=== PATIENT | male | born 1965 | race Caucasian/White ===

== ENCOUNTER 2021-05-01 22:38 | Observation (INO) | payer SELFPAY ==
[2021-05-01] MEDS ORDERED: Haldol 5 MG IM ONE (23:05)
[2021-05-01] MEDS ORDERED: BENADRYL 50 MG/ML IM ONE (23:06)
[2021-05-01] MEDS ORDERED: Ativan 2 MG/1 ML VIAL IM ONE (23:06)
[2021-05-01] MEDS ORDERED: Ativan 2 MG/1 ML VIAL ONE (23:08)
[2021-05-01] MEDS ORDERED: BENADRYL 50 MG/ML ONE (23:08)
[2021-05-01] MEDS ORDERED: Haldol 5 MG ONE (23:08)
--- NOTE | 2021-05-01 23:11 | ERPHSYRPT ---
- History of Present Illness Time Seen by Provider: 05/01/21 22:48 Source: patient, police Exam Limitations: intoxication Physician History: 55 years old male is brought in the ER by PD after he was found wandering in his underwear in the street, cursing at people. Patient is agitated, thrashing around and does not want to be in here. Does admit using multiple drugs but cannot tell exactly when did he use them last time. Moving all 4 extremities. History is limited secondary to his intoxicated condition. Severity of Symptoms-Max: moderate Severity of Symptoms-Current: moderate Associated Symptoms: agitated Allergies/Adverse Reactions: UNOBTAINABLE Allergy (Unverified 05/01/21 22:46) Home Medications: Unobtainable 05/01/21 [History] - Review of Systems All Other Systems: Unable due to condition - Nursing Vital Signs Nursing Vital Signs: Initial Vital Signs Temperature 97.5 F 05/01/21 22:47 Pulse Rate 74 05/01/21 22:47 Respiratory Rate 18 05/01/21 22:47 Blood Pressure 119/88 05/01/21 22:47 O2 Sat by Pulse Oximetry 99 05/01/21 22:47 Pain Scale Pain Intensity 0 - Physical Exam General Appearance: no apparent distress, alert Eyes, Ears, Nose, Throat Exam: normal ENT inspection, TMs normal, pharynx normal Neck Exam: normal inspection, non-tender, supple, full range of motion Respiratory Exam: normal breath sounds, lungs clear Cardiovascular Exam: regular rate/rhythm, normal heart sounds Gastrointestinal/Abdominal Exam: soft, normal bowel sounds, No tenderness Extremities Exam: normal inspection, normal range of motion, No evidence of injury Neurological Exam: alert, 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, oriented x 3, agitated Appearance: impaired insight Behavior/Eye Contact/Speech: good eye contact, refused to answer, increased rate of speech, agitated Skin Exam: normal color SpO2 Interpretation: normal SpO2: 95 O2 Delivery: Room Air - Course EKG Interpreted by Me: RATE ([id number]), Sinus Rhythm, Left Shipman Deviation, NORMAL INTERVALS, Non-specific ST Changes Ordered Tests: Active Orders 24 hr Category Date Time Status Bedrest with BRP/BSC ROUTINE Activity 05/02/21 01:58 Active Up With Assistance ROUTINE Activity 05/02/21 01:58 Active Code Status Order ROUTINE Care 05/02/21 01:58 Active Fall Protocol ROUTINE Care 05/02/21 01:58 Active IV Care Q6H Care 05/02/21 01:58 Active IV Insertion STAT Care 05/01/21 22:59 Completed Neuro Checks Q1H Care 05/02/21 01:58 Active POCT Glucose Check ACHS Care 05/02/21 01:[address] in Observation ROUTINE Care 05/02/21 01:58 Active Navjot LaynejohnAida ROUTINE Care 05/02/21 01:58 Active ACETAMINOPHEN Stat Lab 05/01/21 22:55 Completed CBC W DIFF AM.LAB Lab 05/02/21 04:00 Ordered CBC W DIFF Stat Lab 05/01/21 22:55 Completed CMP AM.LAB Lab 05/02/21 04:00 Ordered CMP Stat Lab 05/01/21 22:55 Completed ETHYL ALCOHOL Stat Lab 05/01/21 22:55 Completed SALICYLATE Stat Lab 05/01/21 22:55 Completed UA W/RFX UR CULTURE Stat Lab 05/01/21 22:59 Completed Urine Triage Profile Stat Lab 05/01/21 22:59 Completed Oxygen Nasal Cannula 2 lpm RT 05/02/21 01:58 Active Transfer Order Routine Transfer 05/02/21 Completed Medication Summary Generic Name Dose Route Start Last Admin Trade Name Freq PRN Reason Stop Dose Admin Potassium Chloride/Sodium Chloride 1,000 mls @ 125 mls/hr 05/02/21 01:58 05/02/21 02:04 Sodium Chloride 0.9% W/ 20 Meq Kcl/Liter IV 06/01/21 01:57 125 mls/hr .Q8H VALARIE Administration Lorazepam 1 mg 05/02/21 01:58 Ativan 2 Mg/1 Ml Vial IV 06/01/21 01:57 Q4H PRN PRN ANXIETY Pantoprazole Sodium 40 mg 05/02/21 10:00 Protonix 40 Mg Iv IV 06/01/21 09:59 [id number] VALARIE Discontinued Medications Generic Name Dose Route Start Last Admin Trade Name Freq PRN Reason Stop Dose Admin Diphenhydramine HCl 50 mg 05/01/21 23:06 05/01/21 23:11 Benadryl 50 Mg/Ml IM 05/01/21 23:07 50 mg STAT ONE Administration Diphenhydramine HCl Confirm 05/01/21 23:08 Benadryl 50 Mg/Ml Administered 05/01/21 23:09 Dose 50 mg .ROUTE .STK-MED ONE Haloperidol Lactate 5 mg 05/01/21 23:05 05/01/21 23:12 Haldol 5 Mg IM 05/01/21 23:06 5 mg STAT ONE Administration Haloperidol Lactate Confirm 05/01/21 23:08 Haldol 5 Mg Administered 05/01/21 23:09 Dose 5 mg .ROUTE .STK-MED ONE Sodium Chloride Confirm 05/01/21 23:24 Sodium Chloride 0.9% 1000 Ml Administered 05/01/21 23:25 Dose 1,000 mls @ ud .ROUTE .STK-MED ONE Sodium Chloride 1,000 mls @ 999 mls/hr 05/01/21 23:45 05/02/21 01:14 Sodium Chloride 0.9% 1000 Ml IV 05/02/21 00:45 Infused .Q1H1M STA Infusion Lorazepam 2 mg 05/01/21 23:06 05/01/21 23:12 Ativan 2 Mg/1 Ml Vial IM 05/01/21 23:07 2 mg STAT ONE Administration Lorazepam Confirm 05/01/21 23:08 Ativan 2 Mg/1 Ml Vial Administered 05/01/21 23:09 Dose 2 mg .ROUTE .STK-MED ONE Lab/Rad Data: Laboratory Result Diagrams 05/01/21 22:55 05/01/21 22:55 Laboratory Results 05/02/21 05/01/21 05/01/21 Range/Units 00:39 22:59 22:59 WBC (4.0-10.5) K/mm3 RBC (4.1-5.6) M/mm3 Hgb (12.5-18.0) gm/dl Hct (42-50) % MCV (78-100) fl MCH (26-32) pg MCHC (32-36) g/dl RDW (11.5-14.0) % Plt Count (150-450) K/mm3 MPV (7.5-11.0) fl Gran % (36.0-66.0) % Eos # (Auto) (0-0.5) Absolute Lymphs (auto) (1.0-4.6) Absolute Monos (auto) (0.0-1.3) Lymphocytes % (24.0-44.0) % Monocytes % (0.0-12.0) % Eosinophils % (0.00-5.0) % Basophils % (0.0-0.4) % Absolute Granulocytes (1.4-6.9) Basophils # (0-0.4) Sodium (137-145) mmol/L Potassium (3.5-5.1) mmol/L Chloride (98-107) mmol/L Carbon Dioxide (22-30) mmol/L Anion Gap (5-15) MEQ/L BUN (9-20) mg/dL Creatinine (0.66-1.25) mg/dL Estimated GFR ML/MIN Glucose (74-106) mg/dL Calcium (8.4-10.2) mg/dL Total Bilirubin (0.2-1.3) mg/dL AST (17-59) U/L ALT (0-50) U/L Alkaline Phosphatase (38-126) U/L Serum Total Protein (6.3-8.2) g/dL Albumin (3.5-5.0) g/dL Urine Color YELLOW (YELLOW) Urine Appearance SLIGHTLY CLOUDY (CLEAR) Urine pH 5.0 (5-6) Ur Specific [place] 1.026 (1.005-1.025) Urine Protein 100 (Negative) Urine Ketones SMALL (NEGATIVE) Urine Blood NEGATIVE (0-5) Jose Carlos/ul Urine Nitrite NEGATIVE (NEGATIVE) Urine Bilirubin NEGATIVE (NEGATIVE) Urine Urobilinogen 2 (0-1) mg/dL Ur Leukocyte Esterase NEGATIVE (NEGATIVE) Urine WBC (Auto) NONE (0-5) /HPF Urine RBC (Auto) NONE (0-2) /HPF U Epithel Cells (Auto) NONE (FEW) /HPF Urine Bacteria (Auto) NONE (NEGATIVE) /HPF Urine Mucus (Auto) MODERATE (NEGATIVE) /HPF Urine Culture Reflexed NO (NO) Urine Glucose NEGATIVE (NEGATIVE) mg/dL Salicylates (2-20) mg/dL Urine Opiates Level NEGATIVE (NEGATIVE) Ur Methadone NEGATIVE (NEGATIVE) Acetaminophen (10-30) ug/ml Urine Barbiturates NEGATIVE (NEGATIVE) Ur Phencyclidine (PCP) NEGATIVE (NEGATIVE) Urine Amphetamine NEGATIVE (NEGATIVE) U Benzodiazepine Level NEGATIVE (NEGATIVE) Urine Cocaine POSITIVE (NEGATIVE) Urine Marijuana (THC) POSITIVE (NEGATIVE) Ethyl Alcohol (0-10) mg/dL SARS-CoV-2 (PCR) NEGATIVE (NEGATIVE) 05/01/21 05/01/21 Range/Units 22:55 22:55 WBC 11.4 H (4.0-10.5) K/mm3 RBC 4.90 (4.1-5.6) M/mm3 Hgb 15.1 (12.5-18.0) gm/dl Hct 46.4 (42-50) % MCV 94.7 (78-100) fl MCH 30.8 (26-32) pg MCHC 32.5 (32-36) g/dl RDW 13.2 (11.5-14.0) % Plt Count 264 (150-450) K/mm3 MPV 10.5 (7.5-11.0) fl Gran % 80.1 H (36.0-66.0) % Eos # (Auto) 0.02 (0-0.5) Absolute Lymphs (auto) 1.18 (1.0-4.6) Absolute Monos (auto) 1.04 (0.0-1.3) Lymphocytes % 10.4 L (24.0-44.0) % Monocytes % 9.1 (0.0-12.0) % Eosinophils % 0.2 (0.00-5.0) % Basophils % 0.2 (0.0-0.4) % Absolute Granulocytes 9.12 H (1.4-6.9) Basophils # 0.02 (0-0.4) Sodium 138 (137-145) mmol/L Potassium 4.4 (3.5-5.1) mmol/L Chloride 100 (98-107) mmol/L Carbon Dioxide 23 (22-30) mmol/L Anion Gap 20.3 H (5-15) MEQ/L BUN 15 (9-20) mg/dL Creatinine 1.30 H (0.66-1.25) mg/dL Estimated GFR > 60.0 ML/MIN Glucose 162 H (74-106) mg/dL Calcium 10.1 (8.4-10.2) mg/dL Total Bilirubin 1.20 (0.2-1.3) mg/dL AST 73 H (17-59) U/L ALT 35 (0-50) U/L Alkaline Phosphatase 38 (38-126) U/L Serum Total Protein 8.4 H (6.3-8.2) g/dL Albumin 5.2 H (3.5-5.0) g/dL Urine Color (YELLOW) Urine Appearance (CLEAR) Urine pH (5-6) Ur Specific [place] (1.005-1.025) Urine Protein (Negative) Urine Ketones (NEGATIVE) Urine Blood (0-5) Jose Carlos/ul Urine Nitrite (NEGATIVE) Urine Bilirubin (NEGATIVE) Urine Urobilinogen (0-1) mg/dL Ur Leukocyte Esterase (NEGATIVE) Urine WBC (Auto) (0-5) /HPF Urine RBC (Auto) (0-2) /HPF U Epithel Cells (Auto) (FEW) /HPF Urine Bacteria (Auto) (NEGATIVE) /HPF Urine Mucus (Auto) (NEGATIVE) /HPF Urine Culture Reflexed (NO) Urine Glucose (NEGATIVE) mg/dL Salicylates < 1.0 L (2-20) mg/dL Urine Opiates Level (NEGATIVE) Ur Methadone (NEGATIVE) Acetaminophen < 10 L (10-30) ug/ml Urine Barbiturates (NEGATIVE) Ur Phencyclidine (PCP) (NEGATIVE) Urine Amphetamine (NEGATIVE) U Benzodiazepine Level (NEGATIVE) Urine Cocaine (NEGATIVE) Urine Marijuana (THC) (NEGATIVE) Ethyl Alcohol < 10 (0-10) mg/dL SARS-CoV-2 (PCR) (NEGATIVE) - Progress Progress: unchanged Progress Note: 05/02/21 00:29 Patient was very agitated on presentation in the ER. Is given Haldol/[place] dryl/Ativan which calmed him down and is sleeping on reevaluation. He is maintaining his vitals. Work-up showed white count of 11, some acute kidney injury but do not know what his baseline level is. Patient does have elevated gap with a glucose of 162 and normal alcohol. Urine drug screen is pending. Patient probably have taken other drugs. Will give him fluids. Discussed with Dr. Villafana and patient is accepted for observation admission in the ICU and once he is awake would be evaluated by behavioral health. Discussed with : Helio Will see patient in: hospital (observation) Counseled pt/family regarding: lab results, diagnosis - Departure Departure Disposition: Observation Clinical Impression: Intoxication, Dehydration Psychosis Qualifiers: Psychosis type: unspecified psychosis type Qualified Code(s): F29 - Unspecified psychosis not due to a substance or known physiological condition Condition: Stable Critical Care Time: No
[2021-05-01 23:13] LABS: Absolute Neutrophil Ct (ANC) 9.12 (1.4-6.9); BASOPHIL % 0.2 % (0.0-0.4); Basophil (Absolute #) 0.02 (0-0.4); Eosinophil % 0.2 % (0.00-5.0); Eosinophil (Absolute #) 0.02 (0-0.5); Hematocrit 46.4 % (42-50); Hemoglobin 15.1 gm/dl (12.5-18.0); Lymphocyte (Absolute #) 1.18 (1.0-4.6); Lymphocytes % 10.4 % (24.0-44.0); Mean Cell Volume 94.7 fl (78-100); Mean Corpuscular Hemoglobin 30.8 pg (26-32); Mean Corpuscular Hgb Concent. 32.5 g/dl (32-36); Mean Platelet Volume 10.5 fl (7.5-11.0); Monocyte (Absolute #) 1.04 (0.0-1.3); Monocytes % 9.1 % (0.0-12.0); Neutrophil % 80.1 % (36.0-66.0); Platelet Count 264 K/mm3 (150-450); Red Cell Distribution Width 13.2 % (11.5-14.0); White Blood Count 11.4 K/mm3 (4.0-10.5)
[2021-05-01 23:20] LABS: ACETAMINOPHEN < 10 ug/ml (10-30); ALBUMIN 5.2 g/dL (3.5-5.0); ALKALINE PHOSPHATASE 38 U/L (38-126); ANION GAP 20.3 MEQ/L (5-15); BLOOD UREA NITROGEN 15 mg/dL (9-20); CHLORIDE 100 mmol/L (98-107); Calcium 10.1 mg/dL (8.4-10.2); Carbon Dioxide 23 mmol/L (22-30); EST GLOMERULAR FILTRATION RATE > 60.0 ML/MIN; ETHYL ALCOHOL < 10 mg/dL (0-10); Glucose 162 mg/dL (74-106); Potassium 4.4 mmol/L (3.5-5.1); SALICYLATE < 1.0 mg/dL (2-20); SGOT/AST 73 U/L (17-59); SGPT/ALT 35 U/L (0-50); SODIUM 138 mmol/L (137-145); Total Protein 8.4 g/dL (6.3-8.2)
[2021-05-01] MEDS ORDERED: Sodium Chloride 0.9% 1000 ML 1,000 ML ONE (23:24)
[2021-05-01] MEDS ORDERED: Sodium Chloride 0.9% 1000 ML 1,000 ML IV STA (23:45)
[2021-05-02 00:27] LABS: Amphetamine,Urine NEGATIVE (NEGATIVE); Appearance SLIGHTLY CLOUDY (CLEAR); Barbiturate,Urine NEGATIVE (NEGATIVE); Benzodiazepine,Urine NEGATIVE (NEGATIVE); Bilirubin NEGATIVE (NEGATIVE); Blood NEGATIVE Ery/ul (0-5); Cocaine,Urine POSITIVE (NEGATIVE); Glucose NEGATIVE (NEGATIVE); Ketones SMALL (NEGATIVE); Leukocyte Esterase NEGATIVE (NEGATIVE); Methadone,Urine NEGATIVE (NEGATIVE); Mucus MODERATE /HPF (NEGATIVE); Nitrite NEGATIVE (NEGATIVE); Opiate,Urine NEGATIVE (NEGATIVE); PCP,Urine NEGATIVE (NEGATIVE); Protein,Urine Dip 100 (Negative); Specific Gravity 1.026 (1.005-1.025); THC,Urine POSITIVE (NEGATIVE); Urobilinogen 2 mg/dL (0-1)
[2021-05-02] MEDS ORDERED: Ativan 2 MG/1 ML VIAL IV PRN (01:58)
[2021-05-02] MEDS: Sodium Chloride 0.9% W/ 20 mEq KCl/LITER 1,000 ML IV SCH ×2 (02:04→09:38)
[2021-05-02 05:55] LABS: Absolute Neutrophil Ct (ANC) 6.35 (1.4-6.9); BASOPHIL % 0.4 % (0.0-0.4); Basophil (Absolute #) 0.03 (0-0.4); Eosinophil % 0.2 % (0.00-5.0); Eosinophil (Absolute #) 0.02 (0-0.5); Hematocrit 43.7 % (42-50); Lymphocyte (Absolute #) 1.39 (1.0-4.6); Lymphocytes % 16.4 % (24.0-44.0); Mean Cell Volume 96.5 fl (78-100); Mean Corpuscular Hemoglobin 30.9 pg (26-32); Mean Platelet Volume 10.8 fl (7.5-11.0); Monocyte (Absolute #) 0.67 (0.0-1.3); Monocytes % 7.9 % (0.0-12.0); Neutrophil % 75.1 % (36.0-66.0); Platelet Count 209 K/mm3 (150-450); Red Blood Count 4.53 M/mm3 (4.1-5.6); Red Cell Distribution Width 13.2 % (11.5-14.0); White Blood Count 8.5 K/mm3 (4.0-10.5)
[2021-05-02 06:23] LABS: ALBUMIN 4.1 g/dL (3.5-5.0); ALKALINE PHOSPHATASE 40 U/L (38-126); ANION GAP 10.9 MEQ/L (5-15); BLOOD UREA NITROGEN 14 mg/dL (9-20); CHLORIDE 105 mmol/L (98-107); Calcium 9.2 mg/dL (8.4-10.2); Carbon Dioxide 28 mmol/L (22-30); Creatinine 1 1.15 mg/dL (0.66-1.25); EST GLOMERULAR FILTRATION RATE > 60.0 ML/MIN; Glucose 102 mg/dL (74-106); Potassium 4.2 mmol/L (3.5-5.1); SGOT/AST 58 U/L (17-59); SGPT/ALT 30 U/L (0-50); SODIUM 139 mmol/L (137-145); Total Protein 6.6 g/dL (6.3-8.2)
[2021-05-02] MEDS ORDERED: PROTONIX 40 MG IV IV SCH (10:00)
[2021-05-02 12:02] VITALS: BP 121/63; PULSE 70; O2SAT 94
--- NOTE | 2021-05-02 14:27 | PCM.SSS ---
History of Present Illness - Chief Complaint Chief Complaint: intoxication/dehydration History of Present Illness: is a 55 year old male. Medications & Allergies Home Medications: Home Medication List No Reportable Medications [No Reported Medications] 05/02/21 [History Confirmed 05/02/21] Allergies/Adverse Reactions: Allergies Allergy/AdvReac Type Severity Reaction Status Date / Time No Known Allergies Allergy Verified 05/02/21 05:14 - Past Medical History Past Medical History: (unable to obtain) Comment: pt unable to provide medical history at this time - Past Surgical History Past Surgical History: (unable to obtain) Other Surgical History: unable to obtain surgical history at this time - Social History Smoking Status: Unknown if ever smoked Alcohol: Daily Drug Use: marijuana, cocaine - Physical Exam Vital Signs: Vital Signs - 24 hr Temp Pulse Resp BP BP Pulse Ox 05/02/21 12:00 97 F 70 18 121/63 94 L 05/02/21 07:08 97.8 F 83 19 123/62 95 05/02/21 03:51 97.2 F 77 22 111/64 98 05/02/21 02:15 98.3 F 79 14 131/80 98 05/02/21 02:10 95 05/02/21 01:11 78 151/100 95 05/02/21 00:12 82 120/66 97 05/01/21 22:47 97.5 F 74 18 119/88 99 Results - Labs Lab/Micro Results: Lab Results-Last 24 Hours 05/01/21 05/01/21 05/01/21 Range/Units 22:55 22:55 22:59 WBC 11.4 H (4.0-10.5) K/mm3 RBC 4.90 (4.1-5.6) M/mm3 Hgb 15.1 (12.5-18.0) gm/dl Hct 46.4 (42-50) % MCV 94.7 (78-100) fl MCH 30.8 (26-32) pg MCHC 32.5 (32-36) g/dl RDW 13.2 (11.5-14.0) % Plt Count 264 (150-450) K/mm3 MPV 10.5 (7.5-11.0) fl Gran % 80.1 H (36.0-66.0) % Eos # (Auto) 0.02 (0-0.5) Absolute Lymphs (auto) 1.18 (1.0-4.6) Absolute Monos (auto) 1.04 (0.0-1.3) Lymphocytes % 10.4 L (24.0-44.0) % Monocytes % 9.1 (0.0-12.0) % Eosinophils % 0.2 (0.00-5.0) % Basophils % 0.2 (0.0-0.4) % Absolute Granulocytes 9.12 H (1.4-6.9) Basophils # 0.02 (0-0.4) Sodium 138 (137-145) mmol/L Potassium 4.4 (3.5-5.1) mmol/L Chloride 100 (98-107) mmol/L Carbon Dioxide 23 (22-30) mmol/L Anion Gap 20.3 H (5-15) MEQ/L BUN 15 (9-20) mg/dL Creatinine 1.30 H (0.66-1.25) mg/dL Estimated GFR > 60.0 ML/MIN Glucose 162 H (74-106) mg/dL Calcium 10.1 (8.4-10.2) mg/dL Total Bilirubin 1.20 (0.2-1.3) mg/dL AST 73 H (17-59) U/L ALT 35 (0-50) U/L Alkaline Phosphatase 38 (38-126) U/L Serum Total Protein 8.4 H (6.3-8.2) g/dL Albumin 5.2 H (3.5-5.0) g/dL Urine Color YELLOW (YELLOW) Urine Appearance SLIGHTLY CLOUDY (CLEAR) Urine pH 5.0 (5-6) Ur Specific [place] 1.026 (1.005-1.025) Urine Protein 100 (Negative) Urine Ketones SMALL (NEGATIVE) Urine Blood NEGATIVE (0-5) Jose Carlos/ul Urine Nitrite NEGATIVE (NEGATIVE) Urine Bilirubin NEGATIVE (NEGATIVE) Urine Urobilinogen 2 (0-1) mg/dL Ur Leukocyte Esterase NEGATIVE (NEGATIVE) Urine WBC (Auto) NONE (0-5) /HPF Urine RBC (Auto) NONE (0-2) /HPF U Epithel Cells (Auto) NONE (FEW) /HPF Urine Bacteria (Auto) NONE (NEGATIVE) /HPF Urine Mucus (Auto) MODERATE (NEGATIVE) /HPF Urine Culture Reflexed NO (NO) Urine Glucose NEGATIVE (NEGATIVE) mg/dL Salicylates < 1.0 L (2-20) mg/dL Urine Opiates Level (NEGATIVE) Ur Methadone (NEGATIVE) Acetaminophen < 10 L (10-30) ug/ml Urine Barbiturates (NEGATIVE) Ur Phencyclidine (PCP) (NEGATIVE) Urine Amphetamine (NEGATIVE) U Benzodiazepine Level (NEGATIVE) Urine Cocaine (NEGATIVE) Urine Marijuana (THC) (NEGATIVE) Ethyl Alcohol < 10 (0-10) mg/dL SARS-CoV-2 (PCR) (NEGATIVE) 05/01/21 05/02/21 05/02/21 Range/Units 22:59 00:39 05:30 WBC 8.5 (4.0-10.5) K/mm3 RBC 4.53 (4.1-5.6) M/mm3 Hgb 14.0 (12.5-18.0) gm/dl Hct 43.7 (42-50) % MCV 96.5 (78-100) fl MCH 30.9 (26-32) pg MCHC 32.0 (32-36) g/dl RDW 13.2 (11.5-14.0) % Plt Count 209 (150-450) K/mm3 MPV 10.8 (7.5-11.0) fl Gran % 75.1 H (36.0-66.0) % Eos # (Auto) 0.02 (0-0.5) Absolute Lymphs (auto) 1.39 (1.0-4.6) Absolute Monos (auto) 0.67 (0.0-1.3) Lymphocytes % 16.4 L (24.0-44.0) % Monocytes % 7.9 (0.0-12.0) % Eosinophils % 0.2 (0.00-5.0) % Basophils % 0.4 (0.0-0.4) % Absolute Granulocytes 6.35 (1.4-6.9) Basophils # 0.03 (0-0.4) Sodium (137-145) mmol/L Potassium (3.5-5.1) mmol/L Chloride (98-107) mmol/L Carbon Dioxide (22-30) mmol/L Anion Gap (5-15) MEQ/L BUN (9-20) mg/dL Creatinine (0.66-1.25) mg/dL Estimated GFR ML/MIN Glucose (74-106) mg/dL Calcium (8.4-10.2) mg/dL Total Bilirubin (0.2-1.3) mg/dL AST (17-59) U/L ALT (0-50) U/L Alkaline Phosphatase (38-126) U/L Serum Total Protein (6.3-8.2) g/dL Albumin (3.5-5.0) g/dL Urine Color (YELLOW) Urine Appearance (CLEAR) Urine pH (5-6) Ur Specific [place] (1.005-1.025) Urine Protein (Negative) Urine Ketones (NEGATIVE) Urine Blood (0-5) Jose Carlos/ul Urine Nitrite (NEGATIVE) Urine Bilirubin (NEGATIVE) Urine Urobilinogen (0-1) mg/dL Ur Leukocyte Esterase (NEGATIVE) Urine WBC (Auto) (0-5) /HPF Urine RBC (Auto) (0-2) /HPF U Epithel Cells (Auto) (FEW) /HPF Urine Bacteria (Auto) (NEGATIVE) /HPF Urine Mucus (Auto) (NEGATIVE) /HPF Urine Culture Reflexed (NO) Urine Glucose (NEGATIVE) mg/dL Salicylates (2-20) mg/dL Urine Opiates Level NEGATIVE (NEGATIVE) Ur Methadone NEGATIVE (NEGATIVE) Acetaminophen (10-30) ug/ml Urine Barbiturates NEGATIVE (NEGATIVE) Ur Phencyclidine (PCP) NEGATIVE (NEGATIVE) Urine Amphetamine NEGATIVE (NEGATIVE) U Benzodiazepine Level NEGATIVE (NEGATIVE) Urine Cocaine POSITIVE (NEGATIVE) Urine Marijuana (THC) POSITIVE (NEGATIVE) Ethyl Alcohol (0-10) mg/dL SARS-CoV-2 (PCR) NEGATIVE (NEGATIVE) 05/02/21 Range/Units 05:30 WBC (4.0-10.5) K/mm3 RBC (4.1-5.6) M/mm3 Hgb (12.5-18.0) gm/dl Hct (42-50) % MCV (78-100) fl MCH (26-32) pg MCHC (32-36) g/dl RDW (11.5-14.0) % Plt Count (150-450) K/mm3 MPV (7.5-11.0) fl Gran % (36.0-66.0) % Eos # (Auto) (0-0.5) Absolute Lymphs (auto) (1.0-4.6) Absolute Monos (auto) (0.0-1.3) Lymphocytes % (24.0-44.0) % Monocytes % (0.0-12.0) % Eosinophils % (0.00-5.0) % Basophils % (0.0-0.4) % Absolute Granulocytes (1.4-6.9) Basophils # (0-0.4) Sodium 139 (137-145) mmol/L Potassium 4.2 (3.5-5.1) mmol/L Chloride 105 (98-107) mmol/L Carbon Dioxide 28 (22-30) mmol/L Anion Gap 10.9 (5-15) MEQ/L BUN 14 (9-20) mg/dL Creatinine 1.15 (0.66-1.25) mg/dL Estimated GFR > 60.0 ML/MIN Glucose 102 (74-106) mg/dL Calcium 9.2 (8.4-10.2) mg/dL Total Bilirubin 0.80 (0.2-1.3) mg/dL AST 58 (17-59) U/L ALT 30 (0-50) U/L Alkaline Phosphatase 40 (38-126) U/L Serum Total Protein 6.6 (6.3-8.2) g/dL Albumin 4.1 (3.5-5.0) g/dL Urine Color (YELLOW) Urine Appearance (CLEAR) Urine pH (5-6) Ur Specific [place] (1.005-1.025) Urine Protein (Negative) Urine Ketones (NEGATIVE) Urine Blood (0-5) Jose Carlos/ul Urine Nitrite (NEGATIVE) Urine Bilirubin (NEGATIVE) Urine Urobilinogen (0-1) mg/dL Ur Leukocyte Esterase (NEGATIVE) Urine WBC (Auto) (0-5) /HPF Urine RBC (Auto) (0-2) /HPF U Epithel Cells (Auto) (FEW) /HPF Urine Bacteria (Auto) (NEGATIVE) /HPF Urine Mucus (Auto) (NEGATIVE) /HPF Urine Culture Reflexed (NO) Urine Glucose (NEGATIVE) mg/dL Salicylates (2-20) mg/dL Urine Opiates Level (NEGATIVE) Ur Methadone (NEGATIVE) Acetaminophen (10-30) ug/ml Urine Barbiturates (NEGATIVE) Ur Phencyclidine (PCP) (NEGATIVE) Urine Amphetamine (NEGATIVE) U Benzodiazepine Level (NEGATIVE) Urine Cocaine (NEGATIVE) Urine Marijuana (THC) (NEGATIVE) Ethyl Alcohol (0-10) mg/dL SARS-CoV-2 (PCR) (NEGATIVE) Accuchecks Date 05/02/21 Time 06:36 Hospital Summary - Vitals & Intake/Output Vital Signs: Vital Signs Temperature 97 F 05/02/21 12:00 Pulse Rate 70 05/02/21 12:00 Respiratory Rate 18 05/02/21 12:00 Blood Pressure 121/63 05/02/21 12:00 O2 Sat by Pulse Oximetry 94 L 05/02/21 12:00 Intake & Output: Intake & Output 04/30/21 05/01/21 05/02/21 05/03/21 11:59 11:59 11:59 11:59 Intake Total 459 Output Total 400 Balance 59 Weight 99.3 kg - Lab Result Diagrams: 05/02/21 05:30 05/02/21 05:30 Lab Results-Last 24 Hrs: Lab Results-Last 24 Hours 05/01/21 05/01/21 05/01/21 Range/Units 22:55 22:55 22:59 WBC 11.4 H (4.0-10.5) K/mm3 RBC 4.90 (4.1-5.6) M/mm3 Hgb 15.1 (12.5-18.0) gm/dl Hct 46.4 (42-50) % MCV 94.7 (78-100) fl MCH 30.8 (26-32) pg MCHC 32.5 (32-36) g/dl RDW 13.2 (11.5-14.0) % Plt Count 264 (150-450) K/mm3 MPV 10.5 (7.5-11.0) fl Gran % 80.1 H (36.0-66.0) % Eos # (Auto) 0.02 (0-0.5) Absolute Lymphs (auto) 1.18 (1.0-4.6) Absolute Monos (auto) 1.04 (0.0-1.3) Lymphocytes % 10.4 L (24.0-44.0) % Monocytes % 9.1 (0.0-12.0) % Eosinophils % 0.2 (0.00-5.0) % Basophils % 0.2 (0.0-0.4) % Absolute Granulocytes 9.12 H (1.4-6.9) Basophils # 0.02 (0-0.4) Sodium 138 (137-145) mmol/L Potassium 4.4 (3.5-5.1) mmol/L Chloride 100 (98-107) mmol/L Carbon Dioxide 23 (22-30) mmol/L Anion Gap 20.3 H (5-15) MEQ/L BUN 15 (9-20) mg/dL Creatinine 1.30 H (0.66-1.25) mg/dL Estimated GFR > 60.0 ML/MIN Glucose 162 H (74-106) mg/dL Calcium 10.1 (8.4-10.2) mg/dL Total Bilirubin 1.20 (0.2-1.3) mg/dL AST 73 H (17-59) U/L ALT 35 (0-50) U/L Alkaline Phosphatase 38 (38-126) U/L Serum Total Protein 8.4 H (6.3-8.2) g/dL Albumin 5.2 H (3.5-5.0) g/dL Urine Color YELLOW (YELLOW) Urine Appearance SLIGHTLY CLOUDY (CLEAR) Urine pH 5.0 (5-6) Ur Specific [place] 1.026 (1.005-1.025) Urine Protein 100 (Negative) Urine Ketones SMALL (NEGATIVE) Urine Blood NEGATIVE (0-5) Jose Carlos/ul Urine Nitrite NEGATIVE (NEGATIVE) Urine Bilirubin NEGATIVE (NEGATIVE) Urine Urobilinogen 2 (0-1) mg/dL Ur Leukocyte Esterase NEGATIVE (NEGATIVE) Urine WBC (Auto) NONE (0-5) /HPF Urine RBC (Auto) NONE (0-2) /HPF U Epithel Cells (Auto) NONE (FEW) /HPF Urine Bacteria (Auto) NONE (NEGATIVE) /HPF Urine Mucus (Auto) MODERATE (NEGATIVE) /HPF Urine Culture Reflexed NO (NO) Urine Glucose NEGATIVE (NEGATIVE) mg/dL Salicylates < 1.0 L (2-20) mg/dL Urine Opiates Level (NEGATIVE) Ur Methadone (NEGATIVE) Acetaminophen < 10 L (10-30) ug/ml Urine Barbiturates (NEGATIVE) Ur Phencyclidine (PCP) (NEGATIVE) Urine Amphetamine (NEGATIVE) U Benzodiazepine Level (NEGATIVE) Urine Cocaine (NEGATIVE) Urine Marijuana (THC) (NEGATIVE) Ethyl Alcohol < 10 (0-10) mg/dL SARS-CoV-2 (PCR) (NEGATIVE) 05/01/21 05/02/21 05/02/21 Range/Units 22:59 00:39 05:30 WBC 8.5 (4.0-10.5) K/mm3 RBC 4.53 (4.1-5.6) M/mm3 Hgb 14.0 (12.5-18.0) gm/dl Hct 43.7 (42-50) % MCV 96.5 (78-100) fl MCH 30.9 (26-32) pg MCHC 32.0 (32-36) g/dl RDW 13.2 (11.5-14.0) % Plt Count 209 (150-450) K/mm3 MPV 10.8 (7.5-11.0) fl Gran % 75.1 H (36.0-66.0) % Eos # (Auto) 0.02 (0-0.5) Absolute Lymphs (auto) 1.39 (1.0-4.6) Absolute Monos (auto) 0.67 (0.0-1.3) Lymphocytes % 16.4 L (24.0-44.0) % Monocytes % 7.9 (0.0-12.0) % Eosinophils % 0.2 (0.00-5.0) % Basophils % 0.4 (0.0-0.4) % Absolute Granulocytes 6.35 (1.4-6.9) Basophils # 0.03 (0-0.4) Sodium (137-145) mmol/L Potassium (3.5-5.1) mmol/L Chloride (98-107) mmol/L Carbon Dioxide (22-30) mmol/L Anion Gap (5-15) MEQ/L BUN (9-20) mg/dL Creatinine (0.66-1.25) mg/dL Estimated GFR ML/MIN Glucose (74-106) mg/dL Calcium (8.4-10.2) mg/dL Total Bilirubin (0.2-1.3) mg/dL AST (17-59) U/L ALT (0-50) U/L Alkaline Phosphatase (38-126) U/L Serum Total Protein (6.3-8.2) g/dL Albumin (3.5-5.0) g/dL Urine Color (YELLOW) Urine Appearance (CLEAR) Urine pH (5-6) Ur Specific [place] (1.005-1.025) Urine Protein (Negative) Urine Ketones (NEGATIVE) Urine Blood (0-5) Jose Carlos/ul Urine Nitrite (NEGATIVE) Urine Bilirubin (NEGATIVE) Urine Urobilinogen (0-1) mg/dL Ur Leukocyte Esterase (NEGATIVE) Urine WBC (Auto) (0-5) /HPF Urine RBC (Auto) (0-2) /HPF U Epithel Cells (Auto) (FEW) /HPF Urine Bacteria (Auto) (NEGATIVE) /HPF Urine Mucus (Auto) (NEGATIVE) /HPF Urine Culture Reflexed (NO) Urine Glucose (NEGATIVE) mg/dL Salicylates (2-20) mg/dL Urine Opiates Level NEGATIVE (NEGATIVE) Ur Methadone NEGATIVE (NEGATIVE) Acetaminophen (10-30) ug/ml Urine Barbiturates NEGATIVE (NEGATIVE) Ur Phencyclidine (PCP) NEGATIVE (NEGATIVE) Urine Amphetamine NEGATIVE (NEGATIVE) U Benzodiazepine Level NEGATIVE (NEGATIVE) Urine Cocaine POSITIVE (NEGATIVE) Urine Marijuana (THC) POSITIVE (NEGATIVE) Ethyl Alcohol (0-10) mg/dL SARS-CoV-2 (PCR) NEGATIVE (NEGATIVE) 05/02/21 Range/Units 05:30 WBC (4.0-10.5) K/mm3 RBC (4.1-5.6) M/mm3 Hgb (12.5-18.0) gm/dl Hct (42-50) % MCV (78-100) fl MCH (26-32) pg MCHC (32-36) g/dl RDW (11.5-14.0) % Plt Count (150-450) K/mm3 MPV (7.5-11.0) fl Gran % (36.0-66.0) % Eos # (Auto) (0-0.5) Absolute Lymphs (auto) (1.0-4.6) Absolute Monos (auto) (0.0-1.3) Lymphocytes % (24.0-44.0) % Monocytes % (0.0-12.0) % Eosinophils % (0.00-5.0) % Basophils % (0.0-0.4) % Absolute Granulocytes (1.4-6.9) Basophils # (0-0.4) Sodium 139 (137-145) mmol/L Potassium 4.2 (3.5-5.1) mmol/L Chloride 105 (98-107) mmol/L Carbon Dioxide 28 (22-30) mmol/L Anion Gap 10.9 (5-15) MEQ/L BUN 14 (9-20) mg/dL Creatinine 1.15 (0.66-1.25) mg/dL Estimated GFR > 60.0 ML/MIN Glucose 102 (74-106) mg/dL Calcium 9.2 (8.4-10.2) mg/dL Total Bilirubin 0.80 (0.2-1.3) mg/dL AST 58 (17-59) U/L ALT 30 (0-50) U/L Alkaline Phosphatase 40 (38-126) U/L Serum Total Protein 6.6 (6.3-8.2) g/dL Albumin 4.1 (3.5-5.0) g/dL Urine Color (YELLOW) Urine Appearance (CLEAR) Urine pH (5-6) Ur Specific [place] (1.005-1.025) Urine Protein (Negative) Urine Ketones (NEGATIVE) Urine Blood (0-5) Jose Carlos/ul Urine Nitrite (NEGATIVE) Urine Bilirubin (NEGATIVE) Urine Urobilinogen (0-1) mg/dL Ur Leukocyte Esterase (NEGATIVE) Urine WBC (Auto) (0-5) /HPF Urine RBC (Auto) (0-2) /HPF U Epithel Cells (Auto) (FEW) /HPF Urine Bacteria (Auto) (NEGATIVE) /HPF Urine Mucus (Auto) (NEGATIVE) /HPF Urine Culture Reflexed (NO) Urine Glucose (NEGATIVE) mg/dL Salicylates (2-20) mg/dL Urine Opiates Level (NEGATIVE) Ur Methadone (NEGATIVE) Acetaminophen (10-30) ug/ml Urine Barbiturates (NEGATIVE) Ur Phencyclidine (PCP) (NEGATIVE) Urine Amphetamine (NEGATIVE) U Benzodiazepine Level (NEGATIVE) Urine Cocaine (NEGATIVE) Urine Marijuana (THC) (NEGATIVE) Ethyl Alcohol (0-10) mg/dL SARS-CoV-2 (PCR) (NEGATIVE) Micro Results-Entire Visit: Accuchecks Date 05/02/21 Time 06:36 - Procedures and Test Procedures and Tests throughout Hospitalization: Therapy Orders & Screens 05/02/21 01:58 Oxygen Nasal Cannula 2 lpm Comment: - Discharge Disposition: Home, Self-Care Condition: Stable Prescriptions: No Action No Reportable Medications [No Reported Medications] Instructions: Drug Abuse and Drug Addiction (DC) Additional Instructions: -FOLLOW UP WITH YOUR PRIMARY CARE PHYSICIAN. -CALL [facility] AT TO DISCUSS AND SCHEDULE OUTPATIENT THERAPY OPTIONS.
== END 2021-05-02 13:30 | disposition home or self-care (01) ==
LOC: ED 22:38 → ICU 05-02 01:51
PROVIDERS: ADMIT Family Medicine; ATTEND Family Medicine
DX: F10.929 Alcohol use, unspecified with intoxication, unspecified (principal); E86.0 Dehydration; F14.90 Cocaine use, unspecified, uncomplicated; F12.90 Cannabis use, unspecified, uncomplicated; F29 Unspecified psychosis not due to a substance or known physiological condition; Z20.828 Contact with and (suspected) exposure to other viral communicable diseases
CPT/HCPCS: 36000; 36415; 80053; 80307; 81001; 85025; 93005; 93268; 96360; 96372; 99285; G0378; U0003; 90791; J1200; J1630; J2060; Q3014; G0480